=== PATIENT | male | born 1960 | race African-American/Black ===

== ENCOUNTER 2020-06-24 09:10 | Outpatient (CLI) | payer BC ==
--- NOTE | 2020-06-24 09:48 | RAD ---
EXAM: XR Sinuses [place] View Only PROVIDED CLINICAL HISTORY: History of metal in the eye, MRI clearance COMPARISON: None FINDINGS: There is no evidence for metallic foreign body in the region of the orbits. IMPRESSION: As above.
--- NOTE | 2020-06-24 10:57 | MRI ---
MRI LUMBAR SPINE WITH AND WITHOUT CONTRAST: DATE: 06/24/2020 HISTORY: 59-year-old male with postlaminectomy syndrome of lumbar spine M 96.1, lumbar spondylosis M 47.816, s pondylolisthesis of lumbar region M 43.16, and lumbar radiculopathy M 54.16. COMPARISON: None available TECHNIQUE: Multiple sequences obtained in axial and sagittal planes, pre and post IV injection of gadolinium-bas ed contrast agent. FINDINGS: There are 5 lumbar-type vertebrae. Vertebral body heights are maintained. No major bone marrow signal abnormality. No high-grade disc space narrowing at any level. Conus medul samantha terminates at T12-L1. There are bilateral pedicle screws at L4 and L5. There is anterior metallic plate at the anterior edg e of L4-5, with screws extending obliquely into the L4 and L5 vertebral bodies. Interbody cage within the L4-5 disc space. Cauda equina is arranged in a symmetrical, normal distribution throughout the thecal sac (no evidence of chronic arachnoiditis). Minimal anterolisthesis of L4 on L5 by a couple of millimeters. No scoliosis. No abnormal, unexpected enhancement. T12-L1:Normal L1-2:Essentially normal. L2-3:Essentially normal. L3-4:Mild to moderate ligamentum flavum thickening. Mild disc bulge. Mild degenerative facet hypertro phy. Moderate bilateral neural foraminal stenosis, right worse than left. Mild central spinal canal stenosis. Posterior epidural fat pad. Mild to moderate thecal sac stenosis. L4-5:Generous caliber of spinal canal and thecal sac. Mild to moderate bilateral neural foraminal abby nosis. Mild disc bulge. Moderate bilateral facet DJD, the medial surfaces of which have been bilaterally partially resected for the laminectomy.. L5-S1:No central or neural foraminal stenosis. Mild facet DJD. IMPRESSION: 1) status post posterior lumbar interbody fusion with hardware and anterior lumbar interbody fusion w ith hardware, and laminectomy, at L4-5. 2) low-grade central spinal canal stenosis and mild to moderate bilateral neural foraminal stenosis a t L3-4 and L4-5. 3) otherwise no evidence of major pathology or complications.
== END 2020-06-24 09:11 | disposition home or self-care (01) ==
LOC: BICMRI 09:10
DX: M96.1 Postlaminectomy syndrome, not elsewhere classified (principal); M43.16 Spondylolisthesis, lumbar region; M47.26 Other spondylosis with radiculopathy, lumbar region; Z98.1 Arthrodesis status; M48.061 Spinal stenosis, lumbar region without neurogenic claudication
CPT/HCPCS: 70210; 72158; 82565